=== PATIENT | male | born 1975 | race Caucasian/White ===

== ENCOUNTER → 2024-07-26 | Outpatient (CLI) | payer OTHER ==
--- NOTE | 2024-07-26 09:55 | MR ---
EXAMINATION TYPE: MR shoulder RT wo con DATE OF EXAM: 07/26/2024 9:25 AM COMPARISON: None. CLINICAL INDICATION: Male, 49 years old with history of M75.101 ROTATOR CUFF TEAR, Right shoulder jennifer n for 11 years, hx of surgery/repair in March 2014 and November 2014. IV Contrast: cc (None if empty) TECHNIQUE: Multiplanar, multisequence imaging of the right shoulder is performed without contrast. FINDINGS: Rotator Cuff: Intact supraspinatus and infraspinatus tendons. Intact supraspinatus tendon. Rotator cu ff muscle bulk is preserved. Acromioclavicular Joint: Moderate narrowing with Mild to moderate capsular hypertrophy. Distal acromi on morphology unremarkable. Glenohumeral Joint: No significant joint effusion. No significant spurring. Narrowing inferiorly is p resent. Labrum: The labrum appears grossly intact given limitation of non-arthrogram study. Biceps Tendon: The long head of biceps is in normal location within bicipital groove. Intracapsular p ortion cannot be identified to the labral anchor and is suspected torn. Bone marrow signal: Areas of increased T2 signal involving the inferior osseous glenoid consistent w ith subchondral cystic change. Other: No additional significant abnormality is appreciated. IMPRESSION: 1. No rotator cuff or labral tear. 2. Significant focal glenohumeral joint degenerative change inferiorly. 3. Retracted tear of the long head of biceps tendon from the labral anchor is felt present. [facility], , 07/26/2024 9:53 AM
== END | disposition home or self-care (01) ==
LOC: RADMRIMAIN 08:51
PROVIDERS: ATTEND Family Medicine
DX: S46.811A Strain of other muscles, fascia and tendons at shoulder and upper arm level, right arm, initial encounter (principal); M75.101 Unspecified rotator cuff tear or rupture of right shoulder, not specified as traumatic; M19.011 Primary osteoarthritis, right shoulder; X58.XXXA Exposure to other specified factors, initial encounter

== ENCOUNTER 2024-09-06 08:13 | Day surgery (SDC) | payer OTHER ==
--- NOTE | 2024-09-05 20:28 | HP ---
HISTORY AND PHYSICAL PREOPERATIVE HISTORY AND PHYSICAL CHIEF COMPLAINT: Chronic laryngitis. HISTORY OF PRESENT ILLNESS: The patient is a 49-year-old male, who was recently seen in my office complaining of having hoarseness, which began in March of 2024. The patient states that he had a severe respiratory infection, however, was not given any antibiotics or treatment from his family physician. He states that he was coughing significantly for approximately 1 or 2 weeks. Shortly after the illness resolved, he noticed that his voice was quite hoarse. He works for [employer]. He denies any recurrent otalgia, difficulty swallowing, or pain upon swallowing. Unfortunately, he smokes approximately 1 pack of cigarettes per day, but states that he is trying to quit. Previous surgeries include right shoulder surgery, right biceps surgery, and an appendectomy. PAST MEDICAL HISTORY: Reveals he has no allergies to medication. MEDICATIONS: He is not currently on any medications. REVIEW OF SYSTEMS: Unremarkable. PHYSICAL EXAMINATION: GENERAL: This patient is a 49-year-old male, who is alert and cooperative. HEENT: The patient is normocephalic. Tympanic membranes are normal. Middle ear spaces are free of any fluid or infection. Pupils are equal, round, and reactive to light and accommodation. Extraocular movements are within normal limits. Intranasal examination reveals severe septal deviation with compensatory hypertrophy of the inferior turbinates and a moderate amount of clear mucus on the mucous membranes and draining down the posterior pharynx. Examination of the oropharynx including indirect laryngoscopy using the headlight and mirror reveals no suspicious lesions on the floor of the mouth, right and left piriform sinuses, vallecula, base of tongue, or epiglottis. Examination of the vocal cords reveals that he has what appears to be polypoid lesion on the right true vocal cord. I cannot see the left true vocal cord because he has overhanging epiglottis. The remainder of the head and neck exam is essentially within normal limits. CHEST/CARDIOVASCULAR: Both lung richardson are clear to percussion and auscultation. S1, S2 are present without evidence of any murmurs, S3s or S4s. Peripheral pulses are bilaterally symmetrical. ABDOMEN: There is no evidence of any masses, megaly, or tenderness. The abdomen is soft. Skin is unremarkable. MUSCULOSKELETAL AND NEUROLOGICAL: Within normal limits. PELVIC/RECTAL: Deferred at this time because the patient has this done on a regular basis at his family physician's office. The remainder of physical exam is essentially unremarkable. IMPRESSION: Chronic laryngitis with laryngeal lesion. PLAN: The patient is scheduled to undergo a suspension microlaryngoscopy with biopsy and CO2 laser of laryngeal lesion under general anesthesia. Attention, RNs in the pre-surgical area, I have ordered for this patient to receive 1000 mg of Ofirmev IV to be given once an intravenous line has been established. I have also ordered for this patient to receive 2 g of Ancef IV to be given once an intravenous line has been established. The Pharmacy Department sends a different pre- surgical prophylactic antibiotic to the pre-surgical area for this patient, please cancel that order and return that medication to the Pharmacy Department. Also make sure that the patient's account is credited appropriately. I have discussed the risks, benefits and alternative therapies for the above-mentioned procedure and for both sedation/analgesia as well as necessary blood product administration, if indicated, as they pertain to this patient. The patient has indicated his understanding and acceptance of the risks and procedures discussed. CLAIRE / IJN: [id number] /
[~2024-09-06 08:13] MED LIST: HYDROmorphone 0.5 MG/0.5 ML SYRINGE IVP PRN; MIDAZOLAM 2 MG/2 ML VIAL IV PRN; Pre Op ABX Message 1 EACH MISC MISCELLANE ONE; SCOPOLAMINE 1 MG/72 HR PATCH TRANSDERM ONE
[2024-09-06 08:38] VITALS: RESP 16; TEMP 97.3
[2024-09-06] MEDS: IV FLUID CONTINUATION 1,000 ML IV ONE ×2 (08:44→09:52)
[2024-09-06] MEDS: ONDANSETRON 4 MG/2 ML VIAL IVP ONE (08:55)
[2024-09-06] MEDS: DEXAMETHASONE SOD PHOSPHATE 4 MG/ML 1 ML VIAL IV ONE (08:55)
[2024-09-06] MEDS: LACTATED RINGERS 1,000 ML IV SCH (08:56)
[2024-09-06] MEDS: ACETAMINOPHEN IV (For NPO) 1,000 MG in EMPTY BAG 1 BAG IVPB ONE (08:58)
[2024-09-06] MEDS: ceFAZolin 2 GM in DEXTROSE 5% IN WATER 50 ML IVPB ONE (09:15)
[2024-09-06] MEDS ORDERED: MIDAZOLAM 2 MG/2 ML VIAL ONE (09:50)
[2024-09-06] MEDS ORDERED: DEXAMETHASONE SOD PHOSPHATE 10 MG/ML 1 ML VIAL ONE (09:50)
[2024-09-06] MEDS ORDERED: PROPOFOL 10 MG/ML 20 ML VIAL IV ONE (09:50)
[2024-09-06] MEDS ORDERED: LIDOCAINE 1% INJ 10MG/ML (20 ML MDV) ONE (09:50)
[2024-09-06] MEDS ORDERED: SUCCINYLCHOLINE CHLORIDE 200 MG/10 ML VIAL IV ONE (09:50)
[2024-09-06] MEDS ORDERED: fentaNYL (PF) 50 MCG/ML 2 ML AMP ONE (09:50)
[2024-09-06 11:54] VITALS: BP 120/75; PULSE 68
--- NOTE | 2024-09-06 14:22 | P.PCN ---
Date of Procedure: 09/06/24 Preoperative Diagnosis: [employer]; rampant dental caries; fearful and resistant beahvior due to Autism/ ADHD/ Anxiety and present of pain in some teeth Postoperative Diagnosis: Same Procedure(s) Performed: Dental restorations; stainless steel crowns; pulp therapy; extraction tooth #P- mobile and exfoliating; sealants Anesthesia: ALLISON Surgeon: Rogers Arrieta Estimated Blood Loss (ml): 14 Pathology: none sent Condition: stable Disposition: same day Indications for Procedure: Extensive dental caries; recent with pain; unable to tell where painful due to Autism and inability to communicate Operative Findings: Same; #P very mobile and extracted Description of Procedure: The following procedures were performed: Throat pack placed 11:50 1. Tooth # D - Dental composite 2. Tooth #E - Disk enamel 3. Tooth # F - Disk enamel 4. Tooth # G - Dental composite 5. Tooth # H - Dental composite and Indirect pulp cap 6. Tooth # I - Stainless steel crown and Indirect pulp cap 7. Tooth # J - Stainless steel crown and Vital pulpotomy 8. Tooth # 19 - Dental sealant 9. Tooth # K - Dental composites and Indirect pulp cap 10. Tooth #L - Stainless steel crown and Indirect pulp cap 11. Tooth # M - Dental composite 12. Tooth # N - Dental composite Throat pack out 12:57 Oral tube shifted Throat pack in 13:01 13. Tooth # A - Stainless steel crown and Indirect pulp cap 14. Tooth # B - Stainless steel crown and Indirect pulp cap 15. Tooth # C - Dental composite and Vital pulpotomy 16. Tooth # P - Extracted 17. Tooth # Q - Disk enamel 18. Tooth # R - Disk enamel 19. Tooth # S - Dental composite 20. Tooth # T - Dental composites and Indirect pulpcap 21. Tooth # 30 - Dental sealant Throat pack out 13:43 Blood loss 14ml Post Op Instructions to parent
--- NOTE | 2024-09-09 14:03 | OP ---
OPERATIVE REPORT DATE OF SERVICE : PREOPERATIVE DIAGNOSIS: Chronic laryngitis. POSTOPERATIVE DIAGNOSIS: Chronic laryngitis with lesions of the left and right true vocal cords, pathology pending. ANESTHESIA: General. PROCEDURE PERFORMED: Suspension microlaryngoscopy with biopsies of the left and right true vocal cords and CO2 laser of lesion of the left true vocal cord. COMPLICATION: None. ESTIMATED BLOOD LOSS: Zero. DESCRIPTION OF PROCEDURE: The patient was placed on the operating table in supine position. After uneventful induction and endotracheal intubation, satisfactory general anesthesia was obtained. Next, the patient was draped in usual customary fashion. Following which, the laryngoscope was introduced into the patient's oropharynx and the entire hypopharynx including the right and left piriform sinuses, base of tongue, vallecular, and epiglottis were inspected and found to be free of any suspicious lesions. It was noted that the patient still has his tonsils present. Next, the tip of the laryngoscope was placed at the laryngeal introitus. Following this, the Lewy apparatus was attached to the handle of the laryngoscope and the laryngoscope was suspended on the patient's chest. Next, using the Zeiss operating microscope and under magnified visualization, inspection revealed that the patient's larynx had the appearance of a so-called smoker's larynx. In addition, this was noted that the left true vocal cord appeared to have a suspicious lesion on the lateral edges. A similar finding was noted on the right true vocal cord. Therefore, multiple biopsies of the left and right true vocal cords were obtained using a pair of up-biting microlaryngeal forceps. The specimen was sent in formalin to Pathology for permanent sectioning. Next, using the CO2 laser on a 5 watt setting, the lesion on the left true vocal cord was vaporized using the CO2 laser. The patient was given 10 mg of Decadron intraoperatively to reduce any postoperative laryngeal edema. At this point, the procedure was terminated. There were no intraoperative complications. The patient was returned to recovery room in satisfactory condition. Final pathology is pending. MMODL / IJN: [id number] /
== END 2024-09-06 12:26 | disposition home or self-care (01) ==
LOC: OR 08:13
PROVIDERS: ATTEND Otolaryngology
DX: J38.1 Polyp of vocal cord and larynx (principal); J37.0 Chronic laryngitis; J34.2 Deviated nasal septum; J34.3 Hypertrophy of nasal turbinates; Z91.89 Other specified personal risk factors, not elsewhere classified; F17.210 Nicotine dependence, cigarettes, uncomplicated; Z79.621 Long term (current) use of calcineurin inhibitor; Z79.2 Long term (current) use of antibiotics
CPT/HCPCS: 31541; 31536; 88305; J2250; J0330; J1100 ×2; J0690; J2405; J2003; J3010; J0131; J2704